=== PATIENT | female | born 1960 | race Native Hawaiian/Other Pacific Islander ===

== ENCOUNTER 2020-09-28 13:46 | Outpatient (CLI) | payer OTHER | END 2020-09-28 20:09 | disposition home or self-care (01) | LOC: MAMMO 13:46 | PROVIDERS: ATTEND Physician Assistant | DX: Z12.31 Encounter for screening mammogram for malignant neoplasm of breast (principal) ==

== ENCOUNTER 2023-03-08 15:11 | Outpatient (CLI) | payer BC | END 2023-03-08 21:54 | disposition home or self-care (01) | LOC: CT 15:11 | PROVIDERS: ATTEND Nurse Practitioner Family | DX: R31.9 Hematuria, unspecified (principal) ==